=== PATIENT | male | born 1990 | race American Indian/Alaskan Native ===

== ENCOUNTER 2020-04-09 20:50 | Emergency (ER) | payer OTHER ==
[2020-04-09] MEDS ORDERED: ACETAMINOPHEN 500 MG TAB PO ONE (21:07)
[2020-04-09] MEDS ORDERED: IBUPROFEN 600 MG TAB PO ONE (21:07)
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
[2020-04-09 21:18] VITALS: BP 134/79
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
== END 2020-04-10 | disposition home or self-care (01) ==
LOC: ED 20:50
DX: M62.830 Muscle spasm of back (principal); M54.5 Low back pain; Z79.899 Other long term (current) drug therapy; V49.59XA Passenger injured in collision with other motor vehicles in traffic accident, initial encounter; Y92.410 Unspecified street and highway as the place of occurrence of the external cause; Y93.89 Activity, other specified; Y99.8 Other external cause status
CPT/HCPCS: 72100; 99283